=== PATIENT | male | born 1945 | race Two or more races ===

== ENCOUNTER → 2017-07-24 | Outpatient (CLI) | payer SELFPAY | END | disposition home or self-care (01) | LOC: KCIC CT 08:26 | DX: Z13.6 Encounter for screening for cardiovascular disorders (principal); I10 Essential (primary) hypertension; E11.9 Type 2 diabetes mellitus without complications; E78.5 Hyperlipidemia, unspecified; Z87.891 Personal history of nicotine dependence | CPT/HCPCS: 75571 ==